=== PATIENT | male | born 1975 ===

== ENCOUNTER → 2018-11-11 21:32 | Outpatient (REF) | payer OTHER, SELFPAY ==
[2018-11-12 00:27] LABS: Rubella Antibody IgG 34.7 IU/mL (>15)
[2018-11-15 14:34] LABS: RPR Screen Nonreactive (Nonreactive)
[2018-11-16 15:43] LABS: Rubeola Measles IgG > 300.00 AU/mL (< 25.00)
[2018-11-16 15:48] LABS: Mumps Virus IgG Antibody < 9.00 AU/mL (< 9.00)
== END ==
LOC: LAB 21:32
PROVIDERS: Visit Provider Family Medicine
DX: Z11.1 Encounter for screening for respiratory tuberculosis (principal); Z11.3 Encounter for screening for infections with a predominantly sexual mode of transmission
CPT/HCPCS: 36415; 86592; 86615; 86648; 86735; 86762; 86765; 86774; 86787; 87591